=== PATIENT | male | born 1975 | race African-American/Black ===

== ENCOUNTER 2018-01-19 04:42 | Emergency (ER) | payer MEDICAID ==
[~2018-01-19] VITALS: Ht 185.4 cm; Wt 126.5 kg
[~2018-01-19 04:42] MED LIST: ACET325T14 PO; AMOX1TAB64 PO
[2018-01-19 05:56] LABS: MEAN CORPUSCULAR HEMOGLOBIN 23.1 pg (27.5-34.5); MEAN CORPUSCULAR VOLUME 72.4 fL (81-97); MEAN PLATELET VOLUME 8.3 fL (7.4-10.4); PLATELET COUNT 220 x10^3/uL (130-400); RED BLOOD COUNT 4.91 x10^6/uL (4.38-5.82); RED CELL DISTRIBUTION WIDTH 17.8 % (9.4-14.8)
[2018-01-19 06:01] LABS: ALANINE AMINOTRANSFERASE 31 U/L (12-78); ALBUMIN 3.1 g/dL (3.4-5.0); ANION GAP 7 mmol/L (5-15); CALCIUM 7.9 mg/dL (8.5-10.1); CHLORIDE 114 mmol/L (98-107); CREATININE 0.94 mg/dL (0.7-1.3)
[2018-01-19 06:03] LABS: ALKALINE PHOSPHATASE 70 U/L (45-117); BILIRUBIN,TOTAL 0.2 mg/dL (0.2-1.0); TOTAL PROTEIN 6.5 g/dL (6.4-8.2)
[2018-01-19 06:22] LABS: MD YES
[2018-01-19 06:25] LABS: ANISOCYTOSIS 1+; BAND#(MANUAL) 0.06 x10^3/uL; BANDS%(MANUAL) 1 % (0-7); BASOS#(MANUAL) 0.06 x10^3/uL (0-0.1); BASOS% (MANUAL) 1 % (0-1); EOS#(MANUAL) 0.06 x10^3/uL (0.0-0.4); EOS% (MANUAL) 1 % (1-7); HYPOCHROMIA 1+; LYMPH#(MANUAL) 2.01 x10^3/uL (1-3.4); LYMPHS% (MANUAL) 33 % (22-44); MICROCYTOSIS 1+; MONOS#(MANUAL) 0.49 x10^3/uL (0.3-2.7); MONOS% (MANUAL) 8 % (2-9); REACTIVE LYMPHS # (MANUAL) 0.06 x10^3/uL (0-0); REACTIVE LYMPHS % (MANUAL) 1 % (0-0); SEG#(MANUAL) 3.36 x10^3/uL (1.8-6.8); SEGS% (MANUAL) 55 % (42-75)
[2018-01-19 06:26] LABS: OVALOCYTES 1+; POLYCHROMASIA 1+
[2018-01-19 06:27] LABS: <PLATELET ESTIMATE> ADEQUATE; <PLT MORPHOLOGY> NORMAL PLT MORPH
[2018-01-19 06:55] VITALS: BP 142/85
[2018-01-19 07:40] LABS: ACETAMINOPHEN < 2 mcg/mL (10-30); SALICYLATE LEVEL < 1.7 mg/dL (2.8-20.0)
[2018-01-19 08:11] LABS: CULTURE INDICATED? NO; MICROSCOPIC NOT IND
[2018-01-19 08:13] LABS: AMPHETAMINE SCREEN, URINE Negative (Negative); BARBITURATE SCREEN, URINE Negative (Negative); BENZODIAZEPINE SCREEN, URINE Negative (Negative); CANNABINOID SCREEN, URINE Positive (Negative); COCAINE SCREEN, URINE Negative (Negative); METHADONE SCREEN, URINE Negative (Negative); OPIATE SCREEN, URINE Negative (Negative)
== END 2018-01-19 10:23 | disposition home or self-care (01) ==
LOC: ED 05:43
DX: F12.10 Cannabis abuse, uncomplicated (principal); F20.9 Schizophrenia, unspecified; Z59.0 Homelessness; S39.012A Strain of muscle, fascia and tendon of lower back, initial encounter; X58.XXXA Exposure to other specified factors, initial encounter; Y93.89 Activity, other specified; Y99.8 Other external cause status; Y92.89 Other specified places as the place of occurrence of the external cause
CPT/HCPCS: 36415; 72110; 72148; 80053; 80307; 80329; 81003; 85025; 99285; G0480